=== PATIENT | female | born 1985 ===

== ENCOUNTER 2017-07-02 08:33 | Inpatient (IN) | payer OTHER ==
[~2017-07-02] VITALS: Ht 162.6 cm; Wt 59.9 kg
== END 2017-07-04 20:17 | DRG 774 ==
LOC: LDR 08:33 → OB/GYN 08:33
PROC: 10E0XZZ Delivery of Products of Conception, External Approach (ICD-10-PCS; principal; 2017-07-02)
PROC: 4A033R1 Measurement of Arterial Saturation, Peripheral, Percutaneous Approach (ICD-10-PCS; 2017-07-02)
PROC: 4A1HXCZ Monitoring of Products of Conception, Cardiac Rate, External Approach (ICD-10-PCS; 2017-07-02)
DX: O99.824 Streptococcus B carrier state complicating childbirth (principal); O98.32 Other infections with a predominantly sexual mode of transmission complicating childbirth; A63.0 Anogenital (venereal) warts; Z3A.37 37 weeks gestation of pregnancy; Z37.0 Single live birth